=== PATIENT | female | born 1955 | race Caucasian/White ===

== ENCOUNTER → 2021-10-28 | Outpatient (CLI) | payer BC ==
[~2021-10-28] VITALS: Ht 165.1 cm; Wt 52.4 kg
[~2021-10-28] MED LIST: ASPIRIN 32325 MG/TAB PO; CENTRUM1 TA1 PO; CRANBERRY250 MG PO; MAGNESIUM250 M1 PO; VITAMIN D31000 I1 PO
[2021-10-28 16:59] VITALS: BP 123/85; PULSE 66; TEMP 98.3
== END ==
LOC: EUO 16:29
DX: M81.0 Age-related osteoporosis without current pathological fracture (principal)
CPT/HCPCS: J0897

== ENCOUNTER 2022-05-15 13:43 | Outpatient (CLI) | payer BC ==
[~2022-05-15] VITALS: Ht 165.1 cm; Wt 53.4 kg
[2022-05-15 14:14] VITALS: BP 123/77; PULSE 71; TEMP 98.4
[2022-05-15] MEDS ORDERED: IRON TABLETS325 MG PO (14:24)
== END 2022-05-15 14:13 | disposition home or self-care (01) ==
LOC: EUO 13:43
DX: M81.0 Age-related osteoporosis without current pathological fracture (principal)
CPT/HCPCS: J0897